=== PATIENT | female | born 1995 | race Two or more races ===

== ENCOUNTER 2018-08-18 03:31 | Emergency (ER) | payer SELFPAY ==
[2018-08-18] MEDS ORDERED: NALOXONE HCL INJ 2 MG/2 ML DISP.SYRIN IV ONE (03:41)
[2018-08-18 03:50] LABS: ABSOLUTE BASOPHILS # (AUTO) 0.1 10^3/uL (0.0-0.2); ABSOLUTE EOSINOPHILS # (AUTO) 0.1 10^3/uL (0.0-0.6); ABSOLUTE LYMPHOCYTES (AUTO) 3.1 10^3/uL (0.5-4.7); ABSOLUTE MONOCYTES (AUTO) 0.8 10^3/uL (0.1-1.4); ABSOLUTE NEUT (AUTO) 5.2 10^3/uL (1.7-8.2); BASOPHILS % (AUTO) 1.1 % (0-2); EOSINOPHILS % (AUTO) 0.8 % (0-6); HEMATOCRIT 38.6 % (36.0-47.0); HEMOGLOBIN 13.2 g/dL (12.0-15.5); LYMPHOCYTES % (AUTO) 33.1 % (13-45); MEAN CORPUSCULAR HEMOGLOBIN 28.8 pg (27.0-33.4); MEAN CORPUSCULAR HGB CONC 34.1 g/dL (32.0-36.0); MEAN CORPUSCULAR VOLUME 84 fl (80-97); MONOCYTES % (AUTO) 8.2 % (3-13); PLATELET COUNT 306 10^3/uL (150-450); RED BLOOD COUNT 4.57 10^6/uL (3.72-5.28); SEGMENTED NEUTROPHILS % (AUTO) 56.8 % (42-78); TOTAL CELLS COUNTED % (AUTO) 100 %; WHITE BLOOD COUNT 9.2 10^3/uL (4.0-10.5)
[2018-08-18 04:01] LABS: ALANINE AMINOTRANSFERASE 36 U/L (9-52); ALBUMIN 4.9 g/dL (3.5-5.0); ALKALINE PHOSPHATASE 130 U/L (38-126); ANION GAP 13 (5-19); ASPARTATE AMINO TRANSFERASE 35 U/L (14-36); BILIRUBIN,DIRECT 0.2 mg/dL (0.0-0.4); BILIRUBIN,TOTAL 0.9 mg/dL (0.2-1.3); BLOOD UREA NITROGEN 15 mg/dL (7-20); CARBON DIOXIDE 23 mmol/L (22-30); CHLORIDE 103 mmol/L (98-107); GLUCOSE 104 mg/dL (75-110); POTASSIUM 3.7 mmol/L (3.6-5.0); SODIUM 138.9 mmol/L (137-145); TOTAL PROTEIN 8.2 g/dL (6.3-8.2)
[2018-08-18 04:03] LABS: ALCOHOL < 10 mg/dL (NONE DETECTED)
[2018-08-18 04:10] LABS: APPEARANCE,URINE CLEAR; BILIRUBIN,URINE NEGATIVE (NEGATIVE); COLOR,URINE STRAW; GLUCOSE, URINE NEGATIVE (NEGATIVE); KETONES,URINE NEGATIVE (NEGATIVE); LEUKOCYTE ESTERASE,URINE NEGATIVE (NEGATIVE); NITRITE,URINE NEGATIVE (NEGATIVE); PROTEIN,URINE NEGATIVE (NEGATIVE); UROBILINOGEN,URINE NEGATIVE mg/dL (<2.0)
[2018-08-18 04:22] LABS: URINE AMPHETAMINES SCREEN NEGATIVE; URINE BARBITURATES SCREEN NEGATIVE; URINE BENZODIAZEPINES SCREEN NEGATIVE; URINE COCAINE SCREEN NEGATIVE; URINE MARIJUANA (THC) SCREEN NEGATIVE; URINE METHADONE SCREEN NEGATIVE; URINE PHENCYCLIDINE SCREEN NEGATIVE
--- NOTE | 2018-08-18 04:33 | RADIOLOGY REPORT (SQ) ---
EXAM DESCRIPTION: CT HEAD WITHOUT IV CONTRAST COMPLETED DATE/TME: 08/18/2018 03:39 CLINICAL HISTORY: 23 years, Female, altered mental status COMPARISON: None. TECHNIQUE: 227 Images stored on PACS. All CT scanners at this facility use dose modulation, iterative reconstruction, and/or weight based dosing when appropriate to reduce radiation dose to as low as reasonably achievable (ALARA). [facility]: Dose Right [facility]: CareDose [facility]: Dose Right [facility]: Teradose 4D [facility]: [employer] LIMITATIONS: None. FINDINGS: The globes are intact. The paranasal sinuses and mastoid air cells are unremarkable. No displaced or depressed skull fracture. No intra or extra-axial hemorrhage. CT is limited for evaluation of acute infarct. No CT evidence for large or territorial acute infarct. No mass. No midline shift IMPRESSION: Negative exam TECHNICAL DOCUMENTATION: Quality ID # [id number]: Final reports with documentation of one or more dose reduction techniques (e.g., Automated exposure control, adjustment of the mA and/or kV according to patient size, use of iterative reconstruction technique) copyright 2011 [employer]- All Rights Reserved
--- NOTE | 2018-08-18 04:40 | RADIOLOGY REPORT (SQ) ---
EXAM DESCRIPTION: XR CHEST 1 VIEW COMPLETED DATE/TME: 08/18/2018 03:39 CLINICAL HISTORY: 23 years, Female, altered mental state Comparison: None FINDINGS: No focal lung consolidation. No pleural effusion. No pneumothorax. Cardiac and mediastinal silhouette is unremarkable. No acute osseous abnormality. Soft tissues are unremarkable. IMPRESSION: No acute findings. No focal lung consolidation.
[2018-08-18] MEDS ORDERED: FAMOTIDINE 20 MG TABLET PO ONE (06:24)
--- NOTE | 2018-08-18 06:25 | ER Document Report ---
ED General - General Stated Complaint: UNRESPONSIVE Time Seen by Provider: 08/18/18 03:38 Mode of Arrival: Carried Information source: Patient, Relative, Friend - [facility] Notes: 23-year-old female history of previous syncopal event presents to the emergency department with report that she was found slumped over in a chair by her family who picked her up and brought her in for evaluation. The patient was responsive only to extreme painful stimuli on arrival. There is no incontinence or tongue biting noted. There was no observed seizure activity. The family reports that the patient had a previous similar episode that occurred about 5 months ago in [facility] and there was no source or cause found for this. There was no report of ingestion or drug use or alcohol use. Blood sugar was normal on arrival. Patient was given Narcan with no response. Past Medical History - General Information source: Patient, Relative, Friend - Social History Smoking Status: Never Smoker Frequency of alcohol use: None Drug Abuse: None Lives with: Family Family History: None Review of Systems - Review of Systems -: Yes All other systems reviewed and negative Physical Exam - Vital signs Vitals: Resp BP Pulse Ox 28 H 149/85 H 100 08/18/18 03:36 08/18/18 03:36 08/18/18 03:36 - Notes Notes: PHYSICAL EXAMINATION: GENERAL: Well-appearing, well-nourished, but only responsive to extreme painful stimuli. HEAD: Atraumatic, normocephalic. EYES: Pupils equal round and reactive to light, extraocular movements intact, conjunctiva are normal. ENT: Nares patent, oropharynx clear without exudates. Moist mucous membranes. Patient did not bite her tongue. NECK: Normal range of motion, supple without lymphadenopathy LUNGS: Breath sounds clear to auscultation bilaterally and equal. No wheezes rales or rhonchi. HEART: Regular rate and rhythm without murmurs ABDOMEN: Soft, nontender, nondistended abdomen. No guarding, no rebound. No masses appreciated. Female : deferred Musculoskeletal: Normal range of motion, no pitting or edema. No cyanosis. NEUROLOGICAL: On later exam when she woke up, cranial nerves grossly intact. Normal speech, normal gait. Normal sensory, motor exams. No cerebellar ataxia or other abnormality. PSYCH: Normal mood, normal affect. SKIN: Warm, Dry, normal turgor, no rashes or lesions noted. Course - Re-evaluation Re-evalutation: 08/18/18 06:46 Initially the patient was minimally responsive to painful stimuli, but when you would force her eyes open she would look at she then would roll her eyes back in her head or go cross-eyed. I am unsure if this was confabulation versus pseudoseizure, although she showed no rigidity and would hold still for IV sticks. When a Brown catheter was placed and she did offer some resistance initially. Within 30 minutes, however the patient was completely alert and oriented x3 and was able to have her Brown catheter removed and was ambulatory with normal gait. At that time neurologic exam as listed above was within normal limits. Patient on questioning denied any headache, neck pain, chest pain, shortness of breath, fever, chills. She had no reproducible abdominal pain but reported symptoms of reflux. There was no obvious evidence for cardiac arrhythmia or ischemia and patient was slightly hypertensive initially but completely normalized. I question pseudoseizure versus postictal phase from a seizure. Patient was instructed she needed to follow-up with neurology for further evaluation and EEG and MRI. - Vital Signs Vital signs: Temp Pulse Resp BP Pulse Ox 27 H 145/90 H 100 08/18/18 05:50 08/18/18 05:50 08/18/18 05:50 - Laboratory Result Diagrams: 08/18/18 03:25 08/18/18 03:25 Laboratory results interpreted by me: 08/18/18 03:25 Alkaline Phosphatase 130 H - EKG Interpretation by Dc EKG shows normal: Sinus rhythm Rate: Tachycardia Additional EKG results interpreted by me: 08/18/18 06:45 EKG is interpreted by fl showed normal sinus rhythm with tachycardia rate of 107. There is no gross evidence for acute DE or ischemia noted. There was no old EKG available for comparison. Discharge - Discharge Clinical Impression: Altered mental state Qualifiers: Altered mental status type: transient alteration of awareness Qualified Code(s): R40.4 - Transient alteration of awareness Condition: Stable Disposition: HOME, SELF-CARE Instructions: Altered Mental Status ([facility]), New Seizure ([facility]) Additional Instructions: Followup with [facility] [phone] for evaluation for possible seizures. No driving, swimming. Prescriptions: Ranitidine HCl 150 mg PO BID #60 tablet
[2018-08-18 06:28] VITALS: BP 145/90
--- NOTE | 2018-08-18 10:30 | EKG REPORT ---
SEVERITY:- OTHERWISE NORMAL ECG - SINUS TACHYCARDIA : Confirmed by: Maya Xiao MD 18-Aug-2018 10:29:55
== END 2018-08-18 06:55 | disposition home or self-care (01) ==
LOC: ER 03:31
DX: R40.4 Transient alteration of awareness (principal); R55 Syncope and collapse
CPT/HCPCS: 93005; 99285; 51702; 96374; 36415; 82962; 80307 ×2; 85025; 81025; 80053; 81001; 71045; 70450; 93010; J2310